=== PATIENT | female | born 1990 ===

== ENCOUNTER 2022-06-26 08:53 | Emergency (ER) | payer BC ==
[~2022-06-26] VITALS: Ht 168.9 cm; Wt 47.7 kg
[2022-06-26 13:04] LABS: BASOPHILS % (AUTO) 0.6 % (0-1); EOSINOPHILS % (AUTO) 0.3 % (0-6); HEMATOCRIT 43.1 % (35.0-45.0); HEMOGLOBIN 14.3 g/dl (12.0-16.0); LYMPHOCYTES # (AUTO) 1.5 X10'3 (1.1-4.8); LYMPHOCYTES % (AUTO) 17.9 % (21-51); MEAN CORPUSCULAR HEMOGLOBIN 31.4 PG (27.0-31.0); MEAN CORPUSCULAR HGB CONC 33.3 g/dL (33.0-36.5); MEAN CORPUSCULAR VOLUME 94.5 FL (78-98); MEAN PLATELET VOLUME 7.3 FL (7.4-10.4); MONOCYTES # (AUTO) 0.5 X10'3 (0-0.9); MONOCYTES % (AUTO) 5.5 % (2-12); NEUTROPHILS # (AUTO) 6.3 X10'3 (1.8-7.7); NEUTROPHILS % (AUTO) 75.7 % (42-75); PLATELET COUNT 274 X10'3 (140-440); RED BLOOD COUNT 4.56 X10'6 (4.20-5.60); RED CELL DISTRIBUTION WIDTH 13.8 % (11.5-14.5); WHITE BLOOD COUNT 8.3 X10'3 (4.5-11.0)
[2022-06-26 13:13] LABS: ALANINE AMINOTRANSFERASE 23 U/L (12-78); ALBUMIN 4.7 G/DL (3.4-5.0); ALBUMIN/GLOBULIN RATIO 1.5 (1.1-1.5); ALKALINE PHOSPHATASE 67 IU/L (46-116); ANION GAP 7 (8-16); ASPARTATE AMINO TRANSFERASE 27 U/L (10-37); BILIRUBIN,TOTAL 0.5 MG/DL (0.1-1.0); BLOOD UREA NITROGEN 8 MG/DL (7-18); CALCIUM 9.1 MG/DL (8.5-10.1); CHLORIDE 105 MMOL/L (99-107); CREATININE 0.73 MG/DL (0.40-0.90); GLUCOSE 108 MG/DL (70-104); POTASSIUM 3.9 MMOL/L (3.5-5.1); SODIUM 141 MMOL/L (135-145); TOTAL CARBON DIOXIDE 29.2 MMOL/L (24-32); TOTAL PROTEIN 7.8 G/DL (6.4-8.2); eGFR > 90 ML/MIN
[2022-06-26 13:53] LABS: URINE HCG NEGATIVE (NEG)
[2022-06-26] MEDS ORDERED: normal saline 1000ML IV soln IVB ONE (14:45)
[2022-06-26 14:54] LABS: D-DIMER < 0.19 MG/L FEU (0-0.50)
[2022-06-26] MEDS ORDERED: iohexol 350MG/ML 100ml bottle IV ONE (16:06)
--- NOTE | 2022-06-26 16:51 | NUR ---
I AGREE WITH THE GENERAL ASSESSMENT PERFORMED PER Ursula JOEL LVN
[2022-06-26 19:10] VITALS: BP 110/76
--- NOTE | 2022-06-26 20:53 | NUR ---
iv dc'd pt being discharged dressing applied
== END 2022-06-26 20:55 | disposition home or self-care (01) ==
LOC: ER 08:53
DX: R07.9 Chest pain, unspecified (principal); Z20.822 Contact with and (suspected) exposure to COVID-19; G44.89 Other headache syndrome; R42 Dizziness and giddiness; I51.9 Heart disease, unspecified; Z91.018 Allergy to other foods; Z91.040 Latex allergy status; Z91.010 Allergy to peanuts; Z88.8 Allergy status to other drugs, medicaments and biological substances; Z88.6 Allergy status to analgesic agent
CPT/HCPCS: 36415; 71045; 71275; 80053; 81025; 83880; 84484; 85025; 85379; 86140; 87811; 93005; 96360; 96361; 99285; J3490; J7030; Q9967